=== PATIENT | female | born 1960 | race Hispanic/Latino ===

== ENCOUNTER 2017-05-15 22:11 | Emergency (ER) | payer BC ==
[~2017-05-15] VITALS: Ht 162.6 cm; Wt 67.1 kg
[2017-05-15 23:04] LABS: PLATELET COUNT 227 K/uL (152-353)
[2017-05-15 23:09] LABS: POTASSIUM 3.3 mmol/L (3.6-5.2); SODIUM 138 mmol/L (136-145)
[2017-05-16 00:16] VITALS: BP 155/79; TEMP 98.9
== END 2017-05-16 00:18 | disposition home or self-care (01) ==
LOC: ED 22:11
PROVIDERS: Family Medicine
DX: R60.9 Edema, unspecified (principal); L25.9 Unspecified contact dermatitis, unspecified cause; R50.9 Fever, unspecified
CPT/HCPCS: 36415; 80053; 85027; 85651; 87040; 96374; 96376; 99284; J1200; J2930

== ENCOUNTER 2018-08-06 12:53 | Outpatient (CLI) | payer BC | END 2018-08-06 22:32 | disposition home or self-care (01) | LOC: MAMMO 12:53 | DX: Z12.31 Encounter for screening mammogram for malignant neoplasm of breast (principal) ==

== ENCOUNTER 2019-08-07 15:29 | Outpatient (CLI) | payer BC | END 2019-08-07 22:31 | disposition home or self-care (01) | LOC: RAD 15:29 | DX: Z13.820 Encounter for screening for osteoporosis (principal); Z12.31 Encounter for screening mammogram for malignant neoplasm of breast; N95.8 Other specified menopausal and perimenopausal disorders ==

== ENCOUNTER 2020-06-15 09:55 | Outpatient (CLI) | payer BC | END 2020-06-15 23:40 | disposition home or self-care (01) | LOC: LABW 09:55 | DX: N30.01 Acute cystitis with hematuria (principal) | CPT/HCPCS: 81000 ==

== ENCOUNTER 2020-08-10 10:51 | Outpatient (CLI) | payer BC | END 2020-08-10 22:10 | disposition home or self-care (01) | LOC: MAMMO 10:51 | PROVIDERS: ATTEND Obstetrics & Gynecology | DX: Z12.31 Encounter for screening mammogram for malignant neoplasm of breast (principal) ==